=== PATIENT | female | born 1955 | race Two or more races ===

== ENCOUNTER 2017-10-26 07:10 | Day surgery (SDC) | payer OTHER ==
[~2017-10-26] VITALS: Ht 154.9 cm; Wt 53.5 kg
[2017-10-26 07:41] VITALS: BP 126/72
[2017-10-26 09:40] VITALS: BP 103/55
== END 2017-10-26 11:50 | disposition home or self-care (01) ==
LOC: GI 07:10 → OR 08:30 → GI 08:30
PROVIDERS: Internal Medicine Gastroenterology
PROC: 0DBC8ZX Excision of Ileocecal Valve, Via Natural or Artificial Opening Endoscopic, Diagnostic (ICD-10-PCS; principal; 2017-10-26 08:30)
DX: Z12.11 Encounter for screening for malignant neoplasm of colon (principal)
CPT/HCPCS: 45378; J1200; J1610; J2250; J2310; J3010; J3490